=== PATIENT | male | born 1955 | race Caucasian/White ===

== ENCOUNTER 2018-07-26 10:23 | Inpatient (IN) ==
--- NOTE | 2018-07-26 10:43 | ED ---
HPI General Chief complaint: Chest Pain Stated complaint: Chest Pain/Arm Complaint Time Seen by Provider: 07/26/18 10:34 Source: patient Mode of arrival: ambulatory Limitations: no limitations History of Present Illness HPI narrative: 62-year-old male with no significant past medical history, not followed by a primary care physician, here by private vehicle for evaluation of chest pain. Over the last 2 weeks the patient has had intermittent episodes of chest pain. States the pain is substernal/epigastric, radiates to his bilateral shoulders, back, and left arm, is intermittent, described as pressure. Pain usually occurs with exertion, and the patient last experienced pain while walking into the emergency department. At time of my assessment he is not having active pain. He took 2 full aspirin this morning. He smokes about a pack and a half of cigarettes daily. He denies paresthesias or motor deficits. No dyspnea. No fevers, chills, cough, recent illness. Family history of cardiac disease in his father. Related Data Home Medications Medication Instructions Recorded Confirmed No Known Home Medications 07/26/18 07/26/18 Allergies Allergy/AdvReac Type Severity Reaction Status Date / Time No Known Allergies Allergy Verified 07/26/18 10:44 Review of Systems ROS: all other systems reviewed are negative PMFSH Social History Social History Substance History: Active Abuse Second Hand Smoke Exposure: No Smoking Status: Heavy tobacco smoker Tobacco Type: Cigarettes How Often Do You Have a Drink Containing Alcohol: Never Recent Travel in [facility] within the Last 8 Weeks: No Recent Out of Country Travel within the Last 8 Weeks: No Exam Narrative Exam Narrative: GENERAL: Well-developed, well-nourished, comfortable, no apparent distress. SKIN: Focused skin assessment warm/dry. HEAD: Atraumatic. Normocephalic. EYES: Pupils equal and round. No scleral icterus. No injection or drainage. ENT: No nasal bleeding or discharge. Mucous membranes pink and moist. NECK: Trachea midline. No JVD. CARDIOVASCULAR: Regular rate and rhythm. No murmur appreciated. Distal pulses brisk and equal bilaterally. RESPIRATORY: No accessory muscle use. Clear to auscultation. Breath sounds equal bilaterally. GASTROINTESTINAL: Abdomen soft, non-tender, nondistended. MUSCULOSKELETAL: No obvious deformities. No clubbing. No cyanosis. No edema. NEUROLOGICAL: Awake and alert. No obvious cranial nerve deficits. Motor grossly within normal limits. Normal speech. PSYCHIATRIC: Appropriate mood and affect; insight and judgment normal. Course Initial Documented Vital Signs Temperature 98.6 F 07/26/18 10:30 Pulse Rate 89 07/26/18 10:30 Respiratory Rate 20 07/26/18 10:30 Blood Pressure 240/106 H 07/26/18 10:30 Pulse Oximetry 97 07/26/18 10:30 Last Documented Vital Signs Temperature 98.6 F 07/26/18 10:30 Pulse Rate 90 07/26/18 10:42 Respiratory Rate 19 07/26/18 10:37 Blood Pressure 170/71 H 07/26/18 12:05 Pulse Oximetry 97 07/26/18 10:43 Critical Care Time Critical Care Time: Yes Total Critical Care Time: 35 Attestation: Aggregate critical care time was 35 minutes. Time to perform other separately billable procedures was not included in the critical care time. My time did not include minutes spent treating any other patients simultaneously or on activities that did not directly contribute to the patient's treatment. The services I provided to this patient were to treat and/or prevent clinically significant deterioration that could result in: , permanent disability, worsening clinical condition, cardiac arrest I provided critical care services requiring my management, as noted below: Chart data review, documentation time, medication orders and management, vital sign assessments/reviewing monitor data, ordering and reviewing lab tests, ordering and interpreting/reviewing x-rays and diagnostic studies, care of the patient and discussion of the patient with the admitting physicians. Medical Decision Making MDM Narrative Medical decision making narrative: Vital signs reviewed. Patient initially presented significantly hypertensive. He was given 10 mg of IV labetalol and 1 sublingual nitroglycerin with improvement in his blood pressure to 159/59. Labs reviewed. Cardiac enzymes are negative. Chest x-ray shows no acute cardia pulmonary disease. The patient's EKG shows extensive T wave inversions in all precordial leads and lateral limb leads. He smokes about 1.5 packs of cigarettes daily. Family history significant for cardiac disease in his father. He does not see a primary care physician and likely has other cardiac risk factors including hypertensive, presenting with a blood pressure of 240/140. Patient's pain appears to be exertional, however does occur while at rest at times. He likely has unstable angina versus stable angina. Because of this I contacted the on- call manager media Dr. Foster who recommends starting the patient on a heparin drip and admitting to the medical service. He will evaluate the patient for possible cath today. The patient was made aware of all findings and plan. Case discussed with hospitalist Dr. Regan Baez who will admit the patient to his service. Medical Screen Exam Complete: Yes Emergency Medical Condition: Yes Differential Diagnosis Differential Diagnosis: ACS, unstable angina, pneumothorax, pericarditis, PE, pneumonia, dissection, hypertensive crisis Lab Data Result diagrams: 07/26/18 10:52 07/26/18 10:52 Lab Results 07/26/18 07/26/18 07/26/18 Range/Units 10:52 10:52 10:52 WBC 6.8 (4.0-11.0) th/mm3 RBC 5.03 (4.50-5.90) mil/mm3 Hgb 14.1 (13.0-17.0) gm/dL Hct 41.4 (39.0-51.0) % MCV 82.3 (80.0-100.0) fL MCH 28.0 (27.0-34.0) pg MCHC 34.0 (32.0-36.0) % RDW 15.0 (11.6-17.2) % Plt Count 249 (150-450) th/mm3 MPV 8.0 (7.0-11.0) fL Neut % (Auto) 58.6 (16.0-70.0) % Lymph % (Auto) 26.8 (9.0-44.0) % [place] % (Auto) 9.9 H (0.0-8.0) % Eos % (Auto) 4.0 (0.0-4.0) % Baso % (Auto) 0.7 (0.0-2.0) % Neut # (Auto) 4.0 (1.8-7.7) th/mm3 Lymph # (Auto) 1.8 (1.0-4.8) th/mm3 [place] # (Auto) 0.7 (0.0-0.9) th/mm3 Eos # (Auto) 0.3 (0.0-0.4) th/mm3 Baso # (Auto) 0.1 (0.0-0.2) th/mm3 WBC Differential . Differential Comment Auto diff final PT 10.0 (9.8-11.6) sec INR 1.0 Ratio APTT 29.2 (23.4-31.7) sec Sodium 141 (136-145) meq/L Potassium 3.8 (3.5-5.1) meq/L Chloride 105 (98-107) meq/L Carbon Dioxide 29.6 (21.0-32.0) meq/L Anion Gap 6 (5-15) meq/L BUN 22 H (7-18) mg/dL Creatinine 1.36 H (0.60-1.30) mg/dL Estimated GFR 53 L (>89) mL/min Random Glucose 103 (74-106) mg/dL Calcium 9.0 (8.5-10.1) mg/dL Total Bilirubin 0.3 (0.2-1.0) mg/dL AST 13 L (15-37) U/L ALT 33 (12-78) U/L Alkaline Phosphatase 120 H (45-117) U/L Total Creatine Kinase 72 (39-308) U/L Troponin I Less than 0.02 L (0.02-0.05) ng/mL Total Protein 7.4 (6.4-8.2) g/dL Albumin 3.6 (3.4-5.0) g/dL Lipase 151 (73-393) U/L Imaging Data Radiologist's impression: Chest X-Ray 07/26/18 10:40 CONCLUSION: Negative for an acute process. ECG Data Attestation: I personally reviewed and interpreted this ECG as follows: (EKG: Sinus, rate 85, normal axis, incomplete RBBB, T wave inversions in septal, anterior and lateral leads, no ST elevations) Discharge Plan Discharge Disposition Patient Disposition: ED Admit(ED Internal Use Only) Discharge Condition Condition: Stable Discharge Details Diagnosis: Angina pectoris, unstable, Abnormal EKG Physicians Team ED Provider: Brayan Garzon Primary Care Provider: Primary Care Maryse,No Other Providers: Zuleyka Foster Rxs /Orders / Referrals /Forms Prescriptions: No Action No Known Home Medications RF: 0 Discharge Instructions Patient Printed Instructions: Chest Pain (ED) Status ED Status: With Doctor
[2018-07-26] MEDS ORDERED: Labetalol HCl Inj 100 MG/20 ML Vial IV.PUSH ONE (10:56)
--- NOTE | 2018-07-26 11:01 | XR ---
EXAM DATE: 07/26/2018 10:58 AM EST AGE/SEX: 62 years / Male INDICATIONS: Chest pain when arriving. CLINICAL DATA: This is the patient's initial encounter. Patient reports that signs and symptoms have been present for 1 day and indicates a pain score of 0/10. MEDICAL/SURGICAL HISTORY: . smoker None. COMPARISON: No prior exams available for comparison. FINDINGS: A single AP view of the chest demonstrates the lungs to be symmetrically aerated without evidence of mass, infiltrate or effusion. The cardiomediastinal contours are unremarkable. Osseous structures a re intact. CONCLUSION: Negative for an acute process. Electronically signed by: Lenny Quinones MD Board Certified Radiologist 07/26/2018 11:00 AM EST
[2018-07-26 11:06] LABS: Baso # (Auto) 0.1 th/mm3 (0.0-0.2); Baso % (Auto) 0.7 % (0.0-2.0); Eos # (Auto) 0.3 th/mm3 (0.0-0.4); Hematocrit 41.4 % (39.0-51.0); Hemoglobin 14.1 gm/dL (13.0-17.0); Lymph # (Auto) 1.8 th/mm3 (1.0-4.8); Lymph % (Auto) 26.8 % (9.0-44.0); Mean Corpuscular Volume 82.3 fL (80.0-100.0); Mono # (Auto) 0.7 th/mm3 (0.0-0.9); Mono % (Auto) 9.9 % (0.0-8.0); Neut % (Auto) 58.6 % (16.0-70.0); Platelet Count 249 th/mm3 (150-450); Red Blood Count 5.03 mil/mm3 (4.50-5.90); White Blood Count 6.8 th/mm3 (4.0-11.0)
[2018-07-26] MEDS ORDERED: Labetalol HCl Inj 100 MG/20 ML Vial ONE (11:06)
[2018-07-26 11:20] LABS: Albumin 3.6 g/dL (3.4-5.0); Anion Gap 6 meq/L (5-15); Aspartate Aminotransferase 13 U/L (15-37); Blood Urea Nitrogen 22 mg/dL (7-18); Carbon Dioxide 29.6 meq/L (21.0-32.0); Chloride 105 meq/L (98-107); Glomerular Filtration Rate 53 mL/min (>89); Glucose,Random 103 mg/dL (74-106); Lipase 151 U/L (73-393); Potassium 3.8 meq/L (3.5-5.1); Sodium 141 meq/L (136-145)
[2018-07-26 11:21] LABS: Alanine Aminotransferase 33 U/L (12-78)
[2018-07-26 11:23] LABS: Activated Partial Thrombo Time 29.2 sec (23.4-31.7)
[2018-07-26 11:25] LABS: Alkaline Phosphatase 120 U/L (45-117); Total Protein 7.4 g/dL (6.4-8.2)
[2018-07-26 11:27] LABS: Creatine Kinase 72 U/L (39-308)
[2018-07-26] MEDS ORDERED: Heparin 10,000 UNITS/10 ML Vial (for IV use) IV.PUSH STA (11:43)
[2018-07-26] MEDS ORDERED: Heparin Drip 25,000 UNIT/250 ML BAG IV.CONT PRN (11:43)
[2018-07-26] MEDS ORDERED: Morphine Inj 4 MG/ML Vial IV.PUSH PRN (13:02)
[2018-07-26] MEDS ORDERED: fentaNYL Citrate Inj 100 MCG/2 ML Ampul ONE (13:43)
[2018-07-26] MEDS ORDERED: Heparin/NS PF Inj 1,000 ML ONE (13:43)
[2018-07-26] MEDS ORDERED: Heparin 10,000 UNITS/10 ML Vial (for IV use) ONE (14:28)
[2018-07-26] MEDS ORDERED: Cangrelor Inj 50,000 MCG Vial ONE (14:36)
--- NOTE | 2018-07-26 15:13 | CATHPROC ---
[facility] HIS Report Study Information Study Number Admission Scheduled Start Study Start [id number] Jul 26 2018 12:49PM 07/26/2018 Jul 26 2018 1:16PM [facility] Cardiac Catheterization Admit Source Facility Department Emergency department [facility] Ceramic Chemist Physician and Clinical Staff Initial Zuleyka Lutz Fur Mixer Mitchell Mejía,RUSH Recorder Alli Cohen,RT(R) Recorder Tiffanie Maldonado,RT(R) Gwyn Beth,RT(R) Procedures Performed Procedure Location (Site) Vessel Name Angiogram LV LV Ventricle Coronary Angiograms LCA Left Coronary Coronary Angiograms RCA Right Coronary L Heart Cath PTCA CIRC Dist CIRC Stent CIRC Dist CIRC Wire insertion Fem Art (right) Femoral Art Equipment Time Manager Special Events Description Size Mfg Part Number Used/Scraped WIRE, BALANCE MIDDLEWEIGHT [id number] 14:27 [employer] 190CM Used 190CM *[id number] TRANSDUCER, TRClarion Research GroupAVE [id number] 14:00 ETIENNE LINO * Used W/STOCKCOCK *[id number] [id number] *[id number] 534-520T *[id number] [id number] *[id number] [id number] *[id number] *[id number] 14:56 DAIG/[employer]. [employer] ANGIOSEAL, FR6 VIP FR 6 Used *[id number] 14:00 [employer] BLANKET,WARM AIR CCL * Used *[id number] 14:00 [employer] PACK, CCL CUSTOM * Used *[id number] 14:00 [employer] PACER PEN, SKIN DUAL W/ RULER * Used *[id number] 14:50 [employer] STENT, 2.5 22 INTEGRITY 2.5 22 Used *[id number] 14:48 [employer] MEDICAL 30 YELENA INDEFLATOR Used *[id number] 14:34 [employer] MEDICAL SHEATH, FR6.5 PRELUDE 11CM FR 6.5 038ACT Used *[id number] 14:00 EVRST WIRE, 3MMJ .035 180CM 180CM Used *[id number] PROBE COVER, STERILE [id number] 14:00 [employer] MEDICAL * Used ULTRASOUND W/ GEL *[id number] 14:00 [facility] MANIFOLD, 4 PORT * Used *[id number] TUBING, 72" PRESSURE [id number] 14:08 NAMIC Used INJECTION (APPLIANCE TESTER) 0476 [id number] 14:00 NAMIC TUBING, HIGH PRESSURE 48" 48" Used *[id number] 14:00 [employer] OMNIPAQUE, 350 MG, 150ML 150ML [id number] Used 14:45 [employer] OMNIPAQUE, 350 MG, 150ML 150ML [id number] Used 14:17 [employer]COMED OMNIPAQUE, 350 MG, 50ML 50ML [id number] Used [id number] 14:00 TERUMO MEDICAL SHEATH, FR5 TERUMO (10CM) FR 5 Used *[id number] Equipment Model, Serial, Lot Number and Expiration Data Description Model Number Serial Number Lot Number Expiration Date ANGIOSEAL, FR6 VIP [id number] 01-10-2019 STENT, 2.5 22 INTEGRITY [id number] 12-07-2018 History: Allergies Allergy Reaction No Known Allergies History: Risk Factors Family History of Hypertension Dyslipidemia Previous CO Previous Heart Failure Premature CAD No No Yes No No Prior Valve Prior PCI Prior CABG Surgery No No No Cerebrovascular Peripheral Artery Chronic Lung On Dialysis Diabetes Disease Disease Disease No No No No No History: Other Current Smoker Method Packs a Day Years Used Pack Years Yes Cigarettes 2 40 80 Labs Hgb (g/dl) Hct (%) WBC (l/cumm) Platelets (thousands) 11.60-17.00 35.00-51.00 4.00-11.00 150.00-450.00 14.1 41.4 6.8 249 Glucose (mg/dl) BUN (mg/dl) Creatinine (mg/dl) BUN:Creatinine (1:x) 74.00-106.00 7.00-18.00 0.50-1.30 10.00-20.00 103 22 1.3 16.9 Na (meq/l) K (meq/l) 136.00-145.00 3.50-5.10 141 3.8 INR (PTT:PT) 0.90-1.10 1 Troponin I (ng/ml) CPK (u/l) CPK-MB (ng/ML) 0.02-0.05 26.00-308.00 0.50-3.60 0.02 72 Not Drawn Medication Medication Total Dose (Bolus/Oral) Medication Total Dosage/Unit 1% XYLOCAINE 20 mL FENTANYL 100 mcg HEPARIN 6000 units NTG (IC) 900 mcg VERSED 5 mg Medications (Bolus/Oral) Medication Time Given Dosage/Unit Administered By Reason VERSED 07/26/2018 2:10:26 PM 2 mg Kym, Mitchell 2 mg VERSED given in lab by Mitchell Mejía RN in Left Antecubital via Peripheral IV. Ordered by Zuleyka Martinez. FENTANYL 07/26/2018 2:11:05 PM 50 mcg Kym, Mitchell 50 mcg FENTANYL given in lab by Mitchell Mejía RN in Left Antecubital via Peripheral IV. Ordered by Zuleyka Bates. VERSED 07/26/2018 2:12:50 PM 1 mg Kym, Mitchell 1 mg VERSED given in lab by Mitchell Mejía RN in Left Antecubital via Peripheral IV. Ordered by Zuleyka Martinez. 1% XYLOCAINE 07/26/2018 2:14:53 PM 20 mL Zuleyka Foster 20 mL 1% XYLOCAINE given in lab by Zuleyka Foster in Right Groin via Subcutaneous. VERSED 07/26/2018 2:20:21 PM 1 mg Kym, Mitchell 1 mg VERSED given in lab by Mitchell Mejía RN in Left Antecubital via Peripheral IV. Ordered by Zuleyka Martinez. HEPARIN 07/26/2018 2:34:36 PM 6000 units Kym, Mitchell 6000 units HEPARIN given in lab by Mitchell Mejía RN in Left Antecubital via Peripheral IV. Ordered by Zuleyka Foster. NTG (IC) 07/26/2018 2:44:30 PM 200 mcg Zuleyka Foster 200 mcg NTG (IC) given in lab by Zuleyka Foster in Right Groin via Intra-coronary. Ordered by Zuleyka Martinez. VERSED 07/26/2018 2:44:47 PM 1 mg Kym, Mitchell 1 mg VERSED given in lab by Mitchell Mejía RN in Left Antecubital via Peripheral IV. Ordered by Zuleyka Martinez. FENTANYL 07/26/2018 2:45:05 PM 50 mcg Kym, Mitchell 50 mcg FENTANYL given in lab by Mitchell Mejía RN in Left Antecubital via Peripheral IV. Ordered by Zuleyka Bates. NTG (IC) 07/26/2018 2:45:49 PM 200 mcg Zuleyka Foster 200 mcg NTG (IC) given in lab by Zuleyka Foster in Right Groin via Intra-coronary. Ordered by Zuleyka Martinez. NTG (IC) 07/26/2018 2:49:59 PM 100 mcg Zuleyka Foster 100 mcg NTG (IC) given in lab by Zuleyka Foster in Right Groin via Intra-coronary. Ordered by Zuleyka Martinez. NTG (IC) 07/26/2018 2:53:50 PM 400 mcg Zuleyka Foster 400 mcg NTG (IC) given in lab by Zuleyka Foster in Right Groin via Intra-coronary. Ordered by Zuleyka Martinez. Medication (Drip) Medication Time Given Dosage/Unit Concentration/Unit Diluent (ml) Solution IV Solutions 07/26/2018 1:37:00 PM 0 mL (IV) 500 NaCl .9 Patient arrived on IV Solutions in Left Antecubital via Peripheral IV. Pump/Drip Flow = 20 ml/hr usin g NaCl .9. KENGREAL BOLUS 07/26/2018 2:39:08 PM 16 mL 16 mL KENGREAL BOLUS given in lab by Mitchell Mejía RN in Left Antecubital via Peripheral IV. Ordered by Zuleyka Foster. KENGREAL DRIP 07/26/2018 2:43:44 PM 4 mcg/kg/min 50 mg 250 NaCl .9 4 mcg/kg/min KENGREAL DRIP given in lab by Mitchell Mejía RN in Left Antecubital via Peripheral IV. Pu mp/Drip Flow = 125.16 ml/hr using NaCl .9 with a concentration of 50 mg in 250 ml. Ordered by Zuleyka Foster. Initial Case Assessment Cardiovascular Edema Present Skin color Skin None Normal Warm Dry Circulatory - Right Pulses Dorsalis Pedis Femoral 2 2 Scale (0,1,2,3,4,d) Circulatory - Left Pulses Dorsalis Pedis Femoral 2 2 Scale (0,1,2,3,4,d) Neurological State Oriented to time-place- Alert Moves all extremities person Chronological Log Time Study Chronological Log 13:33:55 Patient arrived via Bed. 13:33:56 Patient Name, D.O.B, / Armband Verified By R.N. 13:33:57 Consent signed by the physician and the patient and verified by the Ceramic Chemist staff. 13:33:58 Pre-op and post- op instructions given; patient acknowledges understanding of instructions. 13:34:00 Presedation assessment performed by Ceramic Chemist RN. 13:34:07 Patient has been NPO for Less than 6Hrs. 13:34:08 Skin Breakdown-none per pt 13:34:10 Patient Warmer Placed on the Table. 13:34:12 Timi Prominences Protected 13:34:13 A # 20 IV was noted in the Antecubital (left). Grade = 0 13:34:16 History and physical on the chart or being dictated. 13:36:20 A # 20 IV was noted in the Hand (left). Grade = 0 13:37:00 Patient arrived on IV Solutions in Left Antecubital via Peripheral IV. Pump/Drip Flow = 20 ml/hr using NaCl .9. 13:37:18 History and physical on the chart or being dictated. 13:38:58 Reference ECG taken Vitals capture started with the following parameters, Patient=Adult, Interval=5 min, Initial Pr ypwhon=248 mmHg, 13:39:51 Deflation Rate=5 mmHg, Cuff placed on Right Arm 13:41:32 HR=87 bpm, GKDZ=245/116 mmhg, SpO2=97 %, Resp=17 B/min 13:45:48 HR=82 bpm, JGKN=105/120 mmhg, SpO2=97.0 %, Resp=18 B/min Assessment: Initial Case, Edema=None, Color=Normal, Skin = Warm, Dry Right Pulses: Aden Ped=2, Femoral=2 13:45:49 Left Pulses: Aden Ped=2, Femoral=2 Neurological: State=Alert, Ox3, ROY 13:46:21 Bilateral groins prepped with 2% chlorhexidine, and draped after a 3 minute waiting time. 13:51:00 MD paged 13:51:40 HR=79 bpm, BGTM=001/114 mmhg, SpO2=97.0 %, Resp=13 B/min 13:55:46 HR=81 bpm, SDKJ=159/92 mmhg, SpO2=99.0 %, Resp=19 B/min 13:56:20 MD responded 13:57:28 Pressure channel 2 zeroed. 14:00:47 HR=79 bpm, WQFZ=019/105 mmhg, SpO2=99.0 %, Resp=16 B/min 14:05:48 HR=77 bpm, MKZJ=854/98 mmhg, SpO2=97.0 %, Resp=17 B/min 14:08:57 MD arrived. 14:10:26 2 mg VERSED given in lab by Mitchell Mejía RN in Left Antecubital via Peripheral IV. Ordered by Zuleyka Foster. 14:10:47 HR=80 bpm, WYHY=475/102 mmhg, SpO2=99.0 %, Resp=13 B/min 14:11:05 50 mcg FENTANYL given in lab by Mitchell Mejía RN in Left Antecubital via Peripheral IV. Ord ered by Zuleyka Foster. 14:12:50 1 mg VERSED given in lab by Mitchell Mejía RN in Left Antecubital via Peripheral IV. Ordered by Zuleyka Foster. Time Out. Correct patient, correct procedure, correct physician, labs, allergies, and equipment verified with laboratory chemical assistant 14:13:28 team present. Fire risk assesment completed (see hard stop sheet for coding). Time Out Conc urred by MD and individual staff in procedure. 14:13:40 Case Start 14:14:53 20 mL 1% XYLOCAINE given in lab by Zuleyka Foster in Right Groin via Subcutaneous. 14:15:11 Access site was Right Femoral Artery. 14:15:16 A SHEATH, FR5 TERUMO (10CM) FR 5 was advanced into the Fem Art (right) using the Percutaneo us technique. A PIGTAIL ANG. INFINITI CATHETER FR 5 was advanced over a wire. OMNIPAQUE, 350 MG, 150ML 150ML was used 14:15:28 for injections. 14:16:31 HR=77 bpm, IMYA=565/94 mmhg, SpO2=96.0 %, Resp=19 B/min Recorded Pressure: LV, HR=76, Condition=Condition 1 14:16:44 (Left Ventricle) LV 188/-11/16 14:17:22 The LV was injected at 10 cc/sec for a total of 30. OMNIPAQUE, 350 MG, 50ML 50ML used. Recorded Pressure: LV, Ao, HR=85, Condition=Condition 1 14:19:06 (Left Ventricle) LV 228/-5/29, (Aorta) Ao 204/88/136 14:19:19 Catheter was removed A AR MOD INFINITI CATHETER FR 5 was advanced over a wire. OMNIPAQUE, 350 MG, 150ML 150ML was us ed for 14:19:57 injections. 14:20:21 1 mg VERSED given in lab by Mitchell Mejía RN in Left Antecubital via Peripheral IV. Ordered by Zuleyka Foster. Recorded Pressure: Ao, HR=85, Condition=Condition 1 14:21:27 (Aorta) Ao 183/98/135 14:21:30 HR=80 bpm, HPQH=580/88 mmhg, SpO2=94.0 %, Resp=24 B/min 14:22:05 The RCA was injected and visualized at various angles. OMNIPAQUE, 350 MG, 150ML 150ML used . 14:23:02 Catheter was removed A JL 4.0 INFINITI CATHETER FR 5 was advanced over a wire. OMNIPAQUE, 350 MG, 150ML 150ML was us ed for 14:23:20 injections. 14:25:13 The LCA was injected and visualized at various angles. OMNIPAQUE, 350 MG, 150ML 150ML used . 14:26:26 Catheter was removed 14:26:31 HR=91 bpm, DVKF=266/104 mmhg, SpO2=93 %, Resp=16 B/min 14:30:13 Activated Clotting Time Drawn 14:30:49 HR=83 bpm, SKIC=438/114 mmhg, SpO2=93 %, Resp=16 B/min 14:34:17 ACT (Normal Range 90-180) = 135 14:34:36 6000 units HEPARIN given in lab by Mitchell Mejía RN in Left Antecubital via Peripheral IV. Ordered by Zuleyka Foster. 14:35:56 HR=87 bpm, VEQC=806/112 mmhg, SpO2=95 %, Resp=10 B/min A SHEATH, FR6.5 PRELUDE 11CM FR 6.5 was exchanged in the Fem Art (right). This was necessary in order to 14:36:42 accomodate a larger catheter. A XBC 3.5 GUIDE CATHETER FR 6 was advanced over a wire. OMNIPAQUE, 350 MG, 150ML 150ML was used for 14:37:17 injections. 14:38:49 A WIRE, 3MMJ .035 180CM 180CM was inserted via Fem Art (right). 16 mL KENGREAL BOLUS given in lab by Mitchell Mejía RN in Left Antecubital via Peripheral IV. Or dered by Kristin 14:39:08 Zuleyka. 14:40:55 Catheter was removed A XBC 3.0 GUIDE CATHETER FR 6 was advanced over a wire. OMNIPAQUE, 350 MG, 150ML 150ML was used for 14:41:04 injections. 14:41:53 HR=87 bpm, LUXN=647/118 mmhg, Resp=19 B/min 14:42:30 Activated Clotting Time Drawn 14:43:00 A WIRE, BALANCE MIDDLEWEIGHT 190CM 190CM was inserted via Fem Art (right). 4 mcg/kg/min KENGREAL DRIP given in lab by Mitchell Mejía RN in Left Antecubital via Peripheral IV. Pump/Drip Flow = 14:43:44 125.16 ml/hr using NaCl .9 with a concentration of 50 mg in 250 ml. Ordered by Zuleyka Foster. 14:44:30 200 mcg NTG (IC) given in lab by Zuleyka Foster in Right Groin via Intra-coronary. Ordered by Zuleyka Foster. 14:44:47 1 mg VERSED given in lab by Mitchell Mejía RN in Left Antecubital via Peripheral IV. Ordered by Zuleyka Foster. 14:45:05 50 mcg FENTANYL given in lab by Mitchell Mejía RN in Left Antecubital via Peripheral IV. Ord ered by Zuleyka Foster. 14:45:49 200 mcg NTG (IC) given in lab by Zuleyka Foster in Right Groin via Intra-coronary. Ordered by Zuleyka Foster. 14:46:00 HR=97 bpm, IEDL=882/130 mmhg, Resp=26 B/min A balloon, sapphire II pro 2.0x10 was inserted over WIRE, BALANCE MIDDLEWEIGHT 190CM 190CM via the Fem Art (right). 14:46:36 ref [id number] lot [id number] 2020-02-01 14:46:52 ACT (Normal Range 90-180) = 312 A balloons over a WIRE, BALANCE MIDDLEWEIGHT 190CM 190CM in the CIRC Dist was inflated using a 30 YELENA 14:48:12 INDEFLATOR at 14 yelena for 30 sec. 14:49:41 Balloon Removed. 14:49:59 100 mcg NTG (IC) given in lab by Zuleyka Foster in Right Groin via Intra-coronary. Ordered by Zuleyka Fotser. 14:50:59 HR=98 bpm, KWLB=309/118 mmhg, SpO2=97.0 %, Resp=15 B/min An STENT, 2.5 22 INTEGRITY 2.5 22 Bare Metal Stent was inserted through a XBC 3.0 GUIDE CATHETE R FR 6 over a 14:51:10 WIRE, BALANCE MIDDLEWEIGHT 190CM 190CM. A STENT, 2.5 22 INTEGRITY 2.5 22 was deployed using a 30 YELENA INDEFLATOR at 9 atmospheres for 45 seconds in the 14:52:03 CIRC Dist. 14:53:28 Delivery device removed 14:53:50 400 mcg NTG (IC) given in lab by Zuleyka Foster in Right Groin via Intra-coronary. Ordered by Zuleyka Foster. 14:54:11 Catheter was removed 14:54:16 Wire removed 14:55:29 An injection in the Fem Art (right) was made through the SHEATH, FR6.5 PRELUDE 11CM FR 6.5. 14:55:48 HR=90 bpm, QIJJ=424/97 mmhg, SpO2=96.0 %, Resp=15 B/min 14:55:58 Case End (Physician broke scrub) 14:59:07 ANGIOSEAL, FR6 VIP FR 6 placement in the Fem Art (right) 15:00:49 HR=91 bpm, CNHI=307/105 mmhg, SpO2=99.0 %, Resp=16 B/min 15:01:18 Sterile dressing applied to site 15:01:19 No case complications noted. 15:01:20 Cine recording checked. 15:01:23 Holding Area notified of successful intervention. 15:01:37 Bedside Report will be given. 15:01:38 Implantable Device card placed in patient's chart. 15:01:47 A Left Heart Cath was performed. 15:05:54 HR=80 bpm, XHDU=769/104 mmhg, Resp=16 B/min 15:10:25 Vitals capture stopped. 15:10:48 Patient moved to stretcher End Study - Contrast Media Used In Study Contrast Total Opened (mL) Total Used (mL) Total Wasted (mL) Omnipaque 350 350 205 145 End Study - Maximum Contrast Load Max Contrast Load (mL) 401.2 End Study - Radiation Exposure Fluoro Time Fluoro Dose (mGy) Cine Dose (uGym2) (minutes) 7.5 [id number] [id number] End Study - Patient Disposition Complications Transferred To Interventional Outcome No Telemetry Bed successful
[2018-07-26] MEDS ORDERED: Misc Info for Pharmacy OTHER STA (15:15)
[2018-07-26] MEDS ORDERED: Iohexol 350 MG/ML 100 ML Vial (for Cath Lab) IVCONTRAST ONE (15:42)
[2018-07-26] MEDS ORDERED: Iohexol 350 MG/ML 50 ML Vial (for Cath Lab) IVCONTRAST ONE (15:42)
--- NOTE | 2018-07-26 16:12 | ECG ---
Date Performed: 07/26/2018 Time Performed: 10:41:47 PTAGE: 62 years EKG: Sinus rhythm POSSIBLE LEFT ATRIAL ENLARGEMENT INCOMPLETE RIGHT BUNDLE BRANCH BLOCK POSSIBLE SEPTAL MYOCARDIAL INF ARCTION MODERATE T-WAVE ABNORMALITY, CONSIDER ANTEROLATERAL ISCHEMIA ABNORMAL ECG NO PREVIOUS TRACING DOCTOR: Rickey Stockton Interpretating Date/Time 07/26/2018 16:10:56
--- NOTE | 2018-07-26 16:19 | P.HPIM ---
History of Present Illness Primary Care Physician: No Primary Care Physician Patient is a pleasant 62-year-old male with no known past medical history presents to emergency department for complaints of epigastric and chest pain. Patient reports that symptoms started about 2 weeks prior to presentation when he first developed abdominal pain which he thought was reflux in nature. Patient reports he did not present to emergency department because he had other things that he also need to take care of. Patient reports that over the last 2 weeks symptoms have progressed prompting him to come to the hospital. Pain is not described as a chest pain located both on the left, right, and substernal chest wall with occasional radiation up to the arm stopping at the elbow. Patient reports that symptoms are aggravated by exertion and relieved with rest. Patient denied loss of consciousness, dizziness, Diaphoresis,wheezing, nausea, vomiting. Patient reports noticing occasional palpitations. Patient has never had these symptoms before and when he presented to emergency department was found to have EKG showing diffuse T wave inversions concerning for ischemia for which she was started promptly on a heparin drip with plan to catheterization. Patient denies drug use. Patient denied trauma. Patient denied recent illness. Patient denied noticing rash over chest wall. Patient reports that he smokes approximately 1.5-2 packs of cigarettes per day for the last 40+ years. Family history significant for father who had 3 vessel CABG and diabetes. Patient's father but unclear circumstances. Patient' s mother from cancer. Inpatient Certification Inpatient Certification: I certify that the inpatient services were ordered in accordance with Medicare regulations governing the order. This includes certification that hospital inpatient services are reasonable and necessary and in the case of services not specified as inpatient-only under 42 CFR 419.22(n), that they are appropriately provided as inpatient services in accordance to with the 2-midnight benchmark under 43 CFR 412.3(e) Review of Systems Review of Systems: all other systems reviewed are negative [facility] Medical History Medical History Patient denies medical problems (Acute) Surgical History Surgical History Hx of tonsillectomy (Acute) Social History Social History Substance History: Active Abuse Second Hand Smoke Exposure: No Smoking Status: Heavy tobacco smoker Tobacco Type: Cigarettes How Often Do You Have a Drink Containing Alcohol: Never Recent Travel in 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 Immunization History Tetanus Immunization: <5 Years Medications and Allergies Allergies Allergy/AdvReac Type Severity Reaction Status Date / Time No Known Allergies Allergy Verified 07/26/18 10:44 Home Medications Medication Instructions Recorded Confirmed Type No Known Home Medications 07/26/18 07/26/18 History Active Medications: Active Medications Aspirin (Aspirin Chew) 81 mg PO DAILY PAMELA Clopidogrel Bisulfate (Plavix) 75 mg PO DAILY PAMELA Lisinopril (Prinivil) 10 mg PO DAILY PAMELA Metoprolol Tartrate (Lopressor) 50 mg PO BID PAMELA Morphine Sulfate (Morphine Inj) 2 mg IV.PUSH Q4H PRN PRN Reason: PAIN SCALE 8 TO 10 Pravastatin Sodium (Pravachol) 40 mg PO HS PAMELA Sodium Chloride (Ns Flush) 2 ml IV.FLUSH BID PAMELA Sodium Chloride (Ns Flush) 2 ml IV.FLUSH PRN PRN PRN Reason: FLUSH AFTER USING IV ACCESS Physical Exam Vital signs: Last Vital Signs Temp 98.6 F 07/26/18 10:30 Pulse 90 07/26/18 10:42 Resp 19 07/26/18 10:37 BP 170/71 H 07/26/18 12:05 Pulse Ox 97 07/26/18 15:24 Intake & Output 07/24/18 07/25/18 07/26/18 07/27/18 06:59 06:59 06:59 06:59 Intake Total Balance Weight 104.326 kg General: No acute distress, conversational HEENT: EOMI, PERRLA Cardio vascular: S1/S2. No murmurs rubs or gallops appreciated. Respiratory: Clear to auscultation anteriorly posteriorly. No intercostal muscle use. Gastrointestinal: Soft, nontender, nondistended, no guarding or rebound appreciated. Positive bowel sounds Extremity: No lower extremity edema Muscular skeletal: No evidence of costochondritis Skin: No rash over anterior chest wall Results Labs CBC & Chem 7: 07/26/18 10:52 07/26/18 10:52 Imaging Impressions Chest X-Ray 07/26/18 10:40 CONCLUSION: Negative for an acute process. Caprini VTE Risk Assessment Caprini VTE Risk Assessment: No/Low Risk (score <= 1) Caprini Risk Assessment Model: Point Value = 1 Point Value = 2 Point Value = 3 Point Value = 5 Age 41-60 Minor surgery BMI > 25 kg/m2 Swollen legs Varicose veins or History of unexplained or recurrent spontaneous Oral contraceptives or hormone replacement Sepsis (< 1 month) Serious lung disease, including pneumonia (< 1 month) Abnormal pulmonary function Acute myocardial infarction Congestive heart failure (< 1 month) History of inflammatory bowel disease Medical patient at bed rest Age 61-74 Arthroscopic surgery Major open surgery (> 45 min) Laparoscopic surgery (> 45 min) Malignancy Confined to bed (> 72 hours) Immobilizing plaster cast Central venous access Age >= 75 History of VTE Family history of VTE Factor V Leiden Prothrombin [id number] Lupus anticoagulant Anticardiolipin antibodies Elevated serum homocysteine Heparin-induced thrombocytopenia Other congenital or acquired thrombophilia Stroke (< 1 month) Elective arthroplasty Hip, pelvis, or leg fracture Acute spinal cord injury (< 1 month) Prophylaxis Regimen: Total Risk Factor Score Risk Level Prophylaxis Regimen 0-1 Low Early ambulation 2 Moderate Order ONE of the following: *Sequential Compression Device (SCD) *Heparin 5000 units SQ BID 3-4 Higher Order ONE of the following medications: *Heparin 5000 units SQ TID *Enoxaparin/Lovenox 40 mg SQ daily (WT < 150 kg, CrCl > 30 mL/min) *Enoxaparin/Lovenox 30 mg SQ daily (WT < 150 kg, CrCl > 10-29 mL/min) *Enoxaparin/Lovenox 30 mg SQ BID (WT < 150 kg, CrCl > 30 mL/min) AND/OR *Sequential Compression Device (SCD) 5 or more Highest Order ONE of the following medications: *Heparin 5000 units SQ TID (Preferred with Epidurals) *Enoxaparin/Lovenox 40 mg SQ daily (WT < 150 kg, CrCl > 30 mL/min) *Enoxaparin/Lovenox 30 mg SQ daily (WT < 150 kg, CrCl > 10-29 mL/min) *Enoxaparin/Lovenox 30 mg SQ BID (WT < 150 kg, CrCl > 30 mL/min) AND *Sequential Compression Device (SCD) Assessment and Plan Plan Patient is a 62-year-old male with no sniffing past medical history presenting with acute onset chest pain found on EKG to have diffuse anterior lateral T wave inversions concerning for acute coronary syndrome specifically U/A Cardiology: Acute coronary syndrome/unstable angina Cardiology consulted and recommendations appreciated via EMR Telemetry monitoring - CXR reviewed. No consolidation EKG as needed chest pain 2D echocardiogram ordered for 07/27 Carvedilol 3.25 mg ordered / Hemoglobin A1c, lipid panel - Morphine 2mg q3 Counseled patient on importance of smoking cessation as well as heart healthy diet and exercise post hospitalization. Patient verbalized understanding Groin check overnight for evidence of hematoma We will follow-up on cardiac catheterization official recommendations and report. Cardiology closely following CODE STATUS: Full code DVT prophylaxis currently on heparin drip Disposition:'s [facility]IC Diet: Cardiac
[2018-07-26] MEDS: Metoprolol Tartrate 50 MG Tablet PO SCH (16:23)
[2018-07-26] MEDS: Lisinopril 5 MG Tablet PO SCH (16:23)
[2018-07-26] MEDS ORDERED: amLODIPine 10 MG Tablet PO ONE (17:00)
--- NOTE | 2018-07-26 18:10 | MB ---
cc: Zuelyka Foster MD DATE: 07/26/2018 HISTORY OF PRESENT ILLNESS: A 62-year-old white male with no previous cardiac history. He has had a 2-week history of substernal chest discomfort radiating to his both shoulders, back and left arm. The pain appears with exertion and improves with rest. It has been more severe and more frequent. The patient has family history of heart disease and continues to smoke. He has no shortness of breath, PND, orthopnea, peripheral edema, dizziness, lightheadedness or palpitations. PAST MEDICAL HISTORY: Negative for hypertension, dyslipidemia, diabetes mellitus, coronary artery disease, or CVA. MEDICATIONS: None. ALLERGIES: NONE. SOCIAL HISTORY: The patient is a heavy smoker. He does not drink alcohol. FAMILY HISTORY: Positive for heart disease in his father. REVIEW OF SYSTEMS: Otherwise negative. PHYSICAL EXAMINATION: VITAL SIGNS: Blood pressure 192/77, pulse 75 and regular. HEENT: Negative, 2+ carotid upstrokes, no bruits. LUNGS: Clear. HEART: Regular with no murmur, gallop or rub. ABDOMEN: Soft. No bruits. EXTREMITIES: Without edema. 2+ pulses. NEUROLOGIC: Grossly nonfocal. LABORATORY DATA: EKG was reviewed and showed normal sinus rhythm, incomplete right bundle branch block, small anteroseptal Q-waves and diffuse ST-T changes. LABORATORY DATA: Hemoglobin 14.1. Potassium 3.8, creatinine 1.36, AST 13, ALT 33. Troponin less than 0.02. DIAGNOSES: 1. Acute coronary syndrome/unstable angina. 2. Smoking. 3. Family history of coronary artery disease. DISPOSITION: The patient will be scheduled for urgent cardiac catheterization and coronary intervention, if necessary, today. He understands the risks and benefits and wishes to proceed. He was strongly encouraged to quit smoking. We will initiate aggressive modifications of his cardiac risk factors. Zuleyka Foster MD OQ/ll , 04:18 PM , 04:26 PM MTDKat
--- NOTE | 2018-07-26 18:16 | MR ---
cc: Zuleyka Foster MD DATE: 07/26/2018 PREOPERATIVE DIAGNOSES: Unstable angina, acute coronary syndrome, class IV angina. PROCEDURE PERFORMED: 1. Retrograde left heart catheterization with left ventriculography and selective coronary angiography. 2. Angioplasty and stenting of the distal left circumflex artery. 3. Moderate sedation. ACCESS SITE: Right femoral artery. EQUIPMENT USED: 1. A 5-Amharic pigtail catheter, 5-Amharic JL4 and AR modified coronary catheters. 2. XB circumflex 3.5 guide, BMW wire, Saphire 2.0 x 10 mm balloon for predilatation, 2.5 x 22 mm Integrity bare-metal stent at 9 atmospheres. MEDICATIONS: Versed IV, fentanyl IV, heparin IV, nitroglycerin IC, Kengreal IV. CONTRAST: Omnipaque 205 mL. COMPLICATIONS: None. ESTIMATED BLOOD LOSS: Less than 10 mL. HEMOSTASIS: Angio-Seal closure. RESULTS: A. HEMODYNAMICS: Heart rate 70 beats per minute. Left ventricular end-diastolic pressure 5 mmHg. Left ventricle 210/5. Aorta 190/98/135. B. Left ventricular ejection fraction 60%, wall motion: small area of mild mid inferior hypokinesis, no mitral regurgitation. C. CORONARY ANGIOGRAPHY: Left main coronary artery patent. Left anterior descending artery patent. First diagonal artery is a large vessel which is patent. Ramus intermedius has mild 20% stenosis in the proximal portion. Left circumflex artery is a nondominant vessel with 20% stenosis in the proximal portion and a severe 90% stenosis in the distal portion. OM1 is patent. Right coronary artery is a dominant vessel which is patent. PDA patent, PLV patent. Stenosis in the circumflex artery was 17 mm long, pre-MAXIMILIANO flow 3, post-MAXIMILIANO flow 3, post-stenosis 0. The patient had his typical angina during balloon inflations. Post-intervention angiography revealed excellent patency of the stented segment and no evidence of dissection, thrombosis, or distal embolization. DIAGNOSES: 1. Unstable angina/acute coronary syndrome. 2. Coronary artery disease with severe stenosis of the distal left circumflex artery. 3. Overall preserved left ventricular systolic function. 4. Successful angioplasty and stenting of the distal left circumflex artery. DISPOSITION: Mr. Levi will be monitored on telemetry after his procedure. He will continue Plavix for at least 3 months and baby aspirin indefinitely. We also initiate therapy with beta karen and statin. We will also titrate antihypertensive therapy. He was strongly encouraged to quit smoking. He will follow up with his primary physician after discharge. MD KAITLIN Taylor/bud , 03:13 PM , 03:24 PM ROSALBA
[2018-07-26] MEDS ORDERED: Heparin - SQ 10,000 UNITS/ML Vial SQ SCH (21:00)
[2018-07-27] MEDS: Metoprolol Tartrate 50 MG Tablet PO SCH ×2 (03:57→15:11)
[2018-07-27 08:16] LABS: Hematocrit 40.5 % (39.0-51.0); Hemoglobin 13.5 gm/dL (13.0-17.0); Mean Corpuscular HGB Conc 33.3 % (32.0-36.0); Mean Corpuscular Hemoglobin 27.7 pg (27.0-34.0); Mean Corpuscular Volume 83.1 fL (80.0-100.0); Mean Platelet Volume 8.4 fL (7.0-11.0); Platelet Count 279 th/mm3 (150-450); Red Blood Count 4.87 mil/mm3 (4.50-5.90); Red Cell Distribution Width 15.2 % (11.6-17.2); White Blood Count 9.6 th/mm3 (4.0-11.0)
[2018-07-27] MEDS: Lisinopril 5 MG Tablet PO SCH (08:22)
[2018-07-27 08:24] LABS: Prothrombin Time 10.4 sec (9.8-11.6)
[2018-07-27 08:39] LABS: Calcium 8.1 mg/dL (8.5-10.1); Chol/HDL Ratio 6.34 Ratio; HDL Cholesterol 32.6 mg/dL (40.0-60.0); Magnesium 2.2 mg/dL (1.5-2.5); Potassium 3.5 meq/L (3.5-5.1)
--- NOTE | 2018-07-27 11:12 | P.PNIM ---
Subjective Interval history: Follow-up for chest pain and hypertension Denies any chest pain, status post cardiac catheterization yesterday. Denies any headache, nausea or vomiting. Blood pressure in the 180s, patient wants to go home. No nausea or vomiting. No focal deficits. Physical Exam Vital signs: Last Vital Signs Temp 98.6 F 07/27/18 07:22 Pulse 64 07/27/18 10:00 Resp 16 07/27/18 07:22 BP 163/78 H 07/27/18 07:22 Pulse Ox 93 L 07/27/18 08:00 Intake & Output 07/25/18 07/26/18 07/27/18 07/28/18 06:59 06:59 06:59 06:59 Intake Total 725 / 725 Output Total 1850 / 1850 Balance -1125 / -1125 Weight 104.4 kg Results Labs CBC & Chem 7: 07/27/18 06:54 07/27/18 06:54 Assessment and Plan Plan Patient is a pleasant 62-year-old male with no known past medical history presents to emergency department for complaints of epigastric and chest pain. EKG showing incomplete right bundle branch block, small anteroseptal Q waves and diffuse ST-T wave changes concerning for ischemia for which she was started promptly on a heparin drip with plan for catheterization. Chest x-ray unremarkable, Troponin 0 0.02. patient has been smoking for the last 40 years and has a family history significant for coronary artery disease. Acute coronary syndrome/unstable angina EKG showed diffuse T wave inversions. LDL 136. Hemoglobin A1c pending. Rest post cardiac catheterization 2017. Patient started on aspirin, Plavix, lisinopril, metoprolol and pravastatin, echocardiogram pending. Cardiology on board. Uncontrolled hypertension-on lisinopril and metoprolol, start Norvasc. Hydralazine intravenously as needed. Increase lisinopril to 20 mg daily. Acute renal failure, cardiorenal versus hypovolemia versus contrast nephropathy- ? No known history of chronic kidney disease, if ever, might have chronic kidney disease from hypertensive nephropathy. Recheck BMP tomorrow, will give some fluids today. Counseled patient on importance of smoking cessation as well as heart healthy diet and exercise post hospitalization. Patient verbalized understanding DVT prophylaxis: Ambulatory He is threatening to leave AMA, he says he is very frustrated and would like to go home.
--- NOTE | 2018-07-27 11:41 | ECG ---
Date Performed: 07/26/2018 Time Performed: 15:34:00 PTAGE: 62 years EKG: Sinus rhythm . nonspecific ST-T changes may represent anterolateral ischemia no change Compared to PREVIOUS TRACING PREVIOUS TRACIN07/26/2018 10.41 DOCTOR: Florin Andrews Interpretating Date/Time 07/27/2018 11:40:30
[2018-07-27] MEDS ORDERED: hydrALAZINE HCl Inj 20 MG/ML Vial IV.PUSH PRN (12:09)
[2018-07-27] MEDS: amLODIPine 10 MG Tablet PO SCH (12:50)
[2018-07-27] MEDS: Sod Chloride 0.9% Inj 1,000 ML IV.CONT SCH ×2 (13:15→23:51)
--- NOTE | 2018-07-27 15:14 | ECHRPT ---
Indication: chest pain CONCLUSIONS Normal left ventricular size. Moderate concentric left ventricular hypertrophy. The left ventricular systolic function is hyperdynamic with an estimated ejection fraction in the ra nge of 65- 70%. [id number] mitral valve regurgitation. The estimated pulmonary arterial pressure is 24 mmHg. BP: / HR: Rhythm: MEASUREMENTS (Male / Female) Normal Values Technical Quality: 2D ECHO LV Diastolic Diameter PLAX 3.9 cm 4.2 - 5.9 / 3.9 - 5.3 cm LV Systolic Diameter PLAX 3.1 cm IVS Diastolic Thickness 2.1 cm 0.6 - 1.0 / 0.6 - 0.9 cm LVPW Diastolic Thickness 1.6 cm 0.6 - 1.0 / 0.6 - 0.9 cm LV Relative Wall Thickness 0.9 RV Internal Dim ED PLAX 3.4 cm LVOT Diameter 2.3 cm Aortic Root Diameter 3.4 cm LV Ejection Fraction MOD BP 58.1 % >= 55 % LV Ejection Fraction MOD 4C 52.9 % LV Ejection Fraction 4C AL 54.5 % LV Ejection Fraction MOD 2C 66.1 % LV Ejection Fraction 2C AL 67.2 % M-MODE Aortic Root Diameter MM 3.8 cm LA Systolic Diameter MM 4.5 cm LA Ao Ratio MM 1.2 AV Cusp Separation MM 2.2 cm DOPPLER AV Peak Velocity 121.0 cm/s AV Peak Gradient 5.9 mmHg AV Mean Gradient 3.0 mmHg AV Velocity Time Integral 21.2 cm LVOT Peak Velocity 117.0 cm/s LVOT Peak Gradient 5.5 mmHg LVOT Velocity Time Integral 22.1 cm AV Area Cont Eq vti 4.3 cm AV Area Cont Eq pk 4.0 cm Mitral E Point Velocity 105.0 cm/s Mitral A Point Velocity 109.0 cm/s Mitral E to A Ratio 1.0 LV E' Lateral Velocity 6.3 cm/s Mitral E to LV E' Lateral Ratio 16.7 LV E' Septal Velocity 5.3 cm/s Mitral E to LV E' Septal Ratio 20.0 TR Peak Velocity 186.0 cm/s TR Peak Gradient 13.8 mmHg Right Atrial Pressure 10.0 mmHg Pulmonary Artery Systolic Pressu 23.8 mmHg Right Ventricular Systolic Press 23.8 mmHg PV Peak Velocity 136.0 cm/s PV Peak Gradient 7.4 mmHg FINDINGS LEFT VENTRICLE Normal left ventricular size. Moderate concentric left ventricular hypertrophy. The left ventricular systolic function is hyperdynamic with an estimated ejection fraction in the ra nge of 65- 70%. RIGHT VENTRICLE Normal right ventricular size and systolic function. LEFT ATRIUM The left atrial size is normal. RIGHT ATRIUM The right atrial size is normal. ATRIAL SEPTUM Normal atrial septal thickness without atrial level shunting by limited color doppler interrogation. AORTA The aortic root and proximal ascending aorta are normal in size on limited imaging. MITRAL VALVE [id number] mitral valve regurgitation. AORTIC VALVE Trileaflet aortic valve. No aortic valve stenosis or regurgitation. TRICUSPID VALVE The estimated pulmonary arterial pressure is 24 mmHg. PULMONARY VALVE No pulmonary valve regurgitation or stenosis. VESSELS The inferior vena cava is normal in size. PERICARDIUM No pericardial effusion. Ramirez Grigsby MD (Electronically Signed) Final Date:27 July 2018 15:13
--- NOTE | 2018-07-27 15:38 | P.PNCA ---
Subjective Interval history: Patient denies any CP, pressure, palpitations, dizziness, edema or SOB. Patient states he feels very good and is ready to go home. Medications and Allergies Allergies Allergy/AdvReac Type Severity Reaction Status Date / Time No Known Allergies Allergy Verified 07/26/18 10:44 Home Medications Medication Instructions Recorded Confirmed Type No Known Home Medications 07/26/18 07/26/18 History Active Medications: Active Medications Amlodipine Besylate (Norvasc) 10 mg PO DAILY [facility] Last Admin: 07/27/18 12:50 Dose: 10 mg Aspirin (Aspirin Chew) 81 mg PO DAILY [facility] Last Admin: 07/27/18 08:22 Dose: 81 mg Clopidogrel Bisulfate (Plavix) 75 mg PO DAILY [facility] Last Admin: 07/27/18 08:22 Dose: 75 mg Diphenhydramine HCl (Benadryl) 25 mg PO HS PRN PRN Reason: INSOMNIA Last Admin: 07/26/18 22:54 Dose: 25 mg Hydralazine HCl (Apresoline Inj) 10 mg IV.PUSH Q4H PRN PRN Reason: SBP>160, DBP>90 Sodium Chloride (Ns Inj) 1,000 mls @ 84 mls/hr IV.CONT .[id number] [facility] Last Admin: 07/27/18 13:15 Dose: 84 mls/hr Lisinopril (Prinivil) 10 mg PO DAILY [facility] Last Admin: 07/27/18 08:22 Dose: 10 mg Metoprolol Tartrate (Lopressor) 50 mg PO Q12H [facility] Last Admin: 07/27/18 15:11 Dose: 50 mg Morphine Sulfate (Morphine Inj) 2 mg IV.PUSH Q4H PRN PRN Reason: PAIN SCALE 8 TO 10 Pravastatin Sodium (Pravachol) 40 mg PO HS [facility] Last Admin: 07/26/18 21:02 Dose: 40 mg Sodium Chloride (Ns Flush) 2 ml IV.FLUSH BID [facility] Last Admin: 07/27/18 10:14 Dose: 2 ml Sodium Chloride (Ns Flush) 2 ml IV.FLUSH PRN PRN PRN Reason: FLUSH AFTER USING IV ACCESS Physical Exam Vital signs: Vital Signs 07/26/18 19:00 07/26/18 20:00 07/26/18 21:00 Temperature 98.5 F Pulse Rate 75 66 78 Respiratory Rate 20 Blood Pressure 147/81 H Pulse Oximetry 97 07/26/18 22:00 07/26/18 23:00 07/27/18 00:00 Temperature 98.4 F Pulse Rate 76 75 73 Respiratory Rate 20 Blood Pressure 174/80 H Pulse Oximetry 93 L 07/27/18 01:00 07/27/18 02:15 07/27/18 03:00 Temperature Pulse Rate 68 80 83 Respiratory Rate Blood Pressure Pulse Oximetry 07/27/18 04:00 07/27/18 05:00 07/27/18 06:00 Temperature 98.3 F Pulse Rate 80 64 67 Respiratory Rate 20 Blood Pressure 190/84 H Pulse Oximetry 91 L 07/27/18 07:00 07/27/18 07:22 07/27/18 08:00 Temperature 98.6 F Pulse Rate 66 72 60 Respiratory Rate 16 Blood Pressure 163/78 H Pulse Oximetry 93 L 93 L 07/27/18 09:00 07/27/18 10:00 07/27/18 11:00 Temperature Pulse Rate 78 64 74 Respiratory Rate Blood Pressure Pulse Oximetry 07/27/18 11:43 07/27/18 12:00 07/27/18 12:27 Temperature 97.9 F Pulse Rate 72 70 Respiratory Rate 16 Blood Pressure 181/72 H 163/83 H Pulse Oximetry 92 L 07/27/18 13:00 07/27/18 15:12 Temperature 98.3 F Pulse Rate 60 72 Respiratory Rate 16 Blood Pressure 182/82 H Pulse Oximetry 94 L Intake & Output 07/26/18 07/27/18 07/27/18 18:59 06:59 18:59 Intake Total 5 / 5 720 / 720 Output Total 1050 / 1050 800 / 800 Balance -1045 / -1045 -80 / -80 Weight 104.326 kg 104.4 kg Intake: IV 5 / 5 Heparin/NS PF Inj 1,000 ML @ 0 5 / 5 mls/hr .ROUTE .[facility] Rx#: [id number] Oral 720 / 720 Output: Urine 1050 / 1050 800 / 800 Other: Date of Last Bowel Movement 07/26/18 - Constitutional no acute distress - Routine HEENT Exam Head: Present: normocephalic Eye: Present: PERRL ENT: Present: mucous membranes moist - Routine Neck Exam Present: full ROM - Routine Respiratory Exam Present: CTA bilaterally - Routine Cardiovascular Exam Present: S1, S2. Absent: murmur, gallop, rubs - Routine Abdominal Exam Present: normoactive bowel sounds - Routine Extremities Exam Present: full ROM, pulses intact, normal capillary refill. Absent: cyanosis, clubbing, edema Comments: Right groin site D&I without signs of bleeding, hematoma or infection - Routine Skin Exam Present: intact - Routine Neurological Exam Present: oriented X3 - Detailed Neurological Exam: Coma Scale Eye Opening: Spontaneous Verbal Response: Oriented Motor Response: Obey commands Prabha Coma Scale Total: 15 - Routine Psychiatric Exam Present: normal affect Results 07/27/18 06:54 07/27/18 06:54 Cardiac Enzymes 07/26/18 Range/Units 10:52 AST 13 L (15-37) U/L Troponin I Less than 0.02 L (0.02-0.05) ng/mL Coagulation 07/26/18 07/27/18 Range/Units 10:52 06:54 PT 10.0 10.4 (9.8-11.6) sec APTT 29.2 (23.4-31.7) sec Lipids 07/27/18 Range/Units 06:54 Triglycerides 190 H (42-150) mg/dL Cholesterol 207 H (120-200) mg/dL HDL Cholesterol 32.6 L (40.0-60.0) mg/dL Cholesterol/HDL Ratio 6.34 Ratio CBC 07/26/18 07/27/18 Range/Units 10:52 06:54 WBC 6.8 9.6 (4.0-11.0) th/mm3 RBC 5.03 4.87 (4.50-5.90) mil/mm3 Hgb 14.1 13.5 (13.0-17.0) gm/dL Hct 41.4 40.5 (39.0-51.0) % Plt Count 249 279 (150-450) th/mm3 Neut # (Auto) 4.0 (1.8-7.7) th/mm3 Lymph # (Auto) 1.8 (1.0-4.8) th/mm3 [place] # (Auto) 0.7 (0.0-0.9) th/mm3 Eos # (Auto) 0.3 (0.0-0.4) th/mm3 Baso # (Auto) 0.1 (0.0-0.2) th/mm3 Comprehensive Metabolic Panel 07/26/18 07/27/18 Range/Units 10:52 06:54 Sodium 141 139 (136-145) meq/L Potassium 3.8 3.5 (3.5-5.1) meq/L Chloride 105 103 (98-107) meq/L Carbon Dioxide 29.6 29.0 (21.0-32.0) meq/L BUN 22 H 21 H (7-18) mg/dL Creatinine 1.36 H 1.31 H (0.60-1.30) mg/dL Calcium 9.0 8.1 L D (8.5-10.1) mg/dL AST 13 L (15-37) U/L ALT 33 (12-78) U/L Alkaline Phosphatase 120 H (45-117) U/L Total Protein 7.4 (6.4-8.2) g/dL Albumin 3.6 (3.4-5.0) g/dL Intake and Output 07/27/18 07/27/18 07/27/18 06:59 14:59 22:59 Intake Total 720 / 720 Output Total 800 / 800 Balance -80 / -80 Intake: Oral 720 / 720 Output: Urine 800 / 800 Other: Date of Last Bowel Movement 07/26/18 07/26/18 Weight 104.4 kg - Imaging and Cardiology Imaging: Impressions Chest X-Ray 07/26/18 10:40 CONCLUSION: Negative for an acute process. Assessment and Plan - Assessment (1) S/P cardiac cath Code(s): Z98.890 - Other specified postprocedural states Status: Acute (2) Angina pectoris, unstable Code(s): I20.0 - Unstable angina Status: Acute (3) Abnormal EKG Code(s): R94.31 - Abnormal electrocardiogram [ECG] [EKG] Status: Acute - Plan Patient is stable from a cardiac standpoint. We will continue full anticoagulation with ASA and Plavix. We will continue current cardiac treatment plan. Continue hydration. Patient remains hypertensive, we will titrate his antihypertensive therapy. We will continue to monitor the patient during his hospitalization. The patient was seen and evaluated by Dr. Foster who participated in care, management and decision making. - Attending Attestation Patient seen and examined. I reviewed and agree with the evaluation and plan as presented. Continue post PCI tx. Titrate antihypertensive management.
[2018-07-27] MEDS ORDERED: Lisinopril 10 MG Tablet PO ONE (16:16)
[2018-07-27] MEDS: Metoprolol Tartrate 100 MG Tablet PO SCH (21:23)
[2018-07-28 00:14] VITALS: RESP 18; TEMP 98.5
[2018-07-28] MEDS: Sod Chloride 0.9% Inj 1,000 ML IV.CONT SCH (01:35)
[2018-07-28 07:29] VITALS: BP 159/78; O2SAT 93
[2018-07-28 07:37] LABS: Hematocrit 40.9 % (39.0-51.0); Hemoglobin 13.5 gm/dL (13.0-17.0); Mean Corpuscular Hemoglobin 27.4 pg (27.0-34.0); Mean Corpuscular Volume 83.2 fL (80.0-100.0); Mean Platelet Volume 8.3 fL (7.0-11.0); Platelet Count 271 th/mm3 (150-450); Red Blood Count 4.91 mil/mm3 (4.50-5.90); Red Cell Distribution Width 14.8 % (11.6-17.2); White Blood Count 9.3 th/mm3 (4.0-11.0)
[2018-07-28 08:00] LABS: Calcium 8.1 mg/dL (8.5-10.1); Carbon Dioxide 28.8 meq/L (21.0-32.0); Potassium 3.9 meq/L (3.5-5.1)
--- NOTE | 2018-07-28 08:38 | P.DS ---
DS: Providers Date of admission: 07/26/18 12:49 Primary care physician: No Primary Care Physician Consults: 07/26/18 11:45 Consult to Cardiology Routine Consulting Provider: Zuleyka Foster Does the patient have a Driveway Attendant who follows them?: No Preferred Custom Miller:: Zuleyka Foster Reason for Consultation: Unstable angina/Stable Angina Notified:: Service Spoke with:: DAKSHA Date Notified:: 07/26/18 Time Notified:: 12:19 Ordering Provider: GIOVANY DS: Diagnosis Discharge Diagnosis (1) S/P cardiac cath: Status: Acute (2) Angina pectoris, unstable: Status: Acute (3) Abnormal EKG: Status: Acute (4) ACS (acute coronary syndrome): Status: Acute DS: Summary Patient is a pleasant 62-year-old male with no known past medical history presents to emergency department for complaints of epigastric and chest pain. EKG showedincomplete right bundle branch block, small anteroseptal Q waves and diffuse ST-T wave changes concerning for ischemia for which she was started promptly on a heparin drip with plan for catheterization. Chest x-ray unremarkable, Troponin 0 0.02. Patient has been smoking for the last 40 years and has a family history significant for coronary artery disease. Patient was diagnosed with unstable angina/acute coronary syndrome, cardiology was consulted, status post cardiac catheterization 07/26/2018, showed coronary artery disease with severe stenosis of the distal left circumflex artery, status post successful angioplasty and stenting of the distal left circumflex. Preserved ejection fraction. LDL 136. Hemoglobin A1c still pending on discharge. Patient also have severe hypertension. Patient started on aspirin, Plavix, lisinopril, metoprolol and pravastatin, Norvasc was also started for blood pressure control. Echocardiogram showed normal left ventricular size, ejection fraction 65-70%. Patient also had acute renal failure possibly from hypovolemia versus contrast nephropathy. No known history of chronic kidney disease, but possibly may have from hypertensive nephropathy and taking NSAIDs. Creatinine improved with volume resuscitation. Counseled patient on importance of smoking cessation as well as heart healthy diet and exercise post hospitalization. Patient verbalized understanding Time spent discussing smoking cessation with patient: 3 to 10 minutes Time Spent with Patient Total time spent providing and/or coordinating discharge services: Greater than 30 minutes Status at Discharge Functional status at discharge: independent ambulation Exam Narrative Exam Narrative: S> no chest pain, not short of breath, denies any palpitations. Blood pressure in the 160s. On room air. Ambulatory. O> General: No acute distress, conversational HEENT: EOMI, PERRLA Cardio vascular: S1/S2. No murmurs rubs or gallops appreciated. Respiratory: Clear to auscultation anteriorly posteriorly. Gastrointestinal: Soft, nontender, nondistended, no guarding or rebound appreciated. Positive bowel sounds Extremity: No lower extremity edema Alert awake and oriented x3, no focal deficits. Results Labs on day of discharge: Labs from last 24 hours 07/28/18 07/28/18 07/27/18 05:58 05:58 06:54 WBC 9.3 RBC 4.91 Hgb 13.5 Hct 40.9 MCV 83.2 MCH 27.4 MCHC 33.0 RDW 14.8 Plt Count 271 MPV 8.3 Sodium 140 139 Potassium 3.9 3.5 Chloride 106 103 Carbon Dioxide 28.8 29.0 Anion Gap 5 7 BUN 21 H 21 H Creatinine 1.19 1.31 H Estimated GFR 62 L 56 L Random Glucose 95 118 H Calcium 8.1 L 8.1 L D Magnesium 2.2 Triglycerides 190 H Cholesterol 207 H LDL Cholesterol, Calc 136 H HDL Cholesterol 32.6 L Cholesterol/HDL Ratio 6.34 Impressions ITS Impressions Chest X-Ray 07/26/18 10:40 CONCLUSION: Negative for an acute process. Discharge Plan Discharge Disposition Patient Disposition: Discharge Home Discharge Condition Condition: Stable Discharge Order Discharge Orders: Discharge Order (Routine); Ordered 07/28/18 Ordered By: Lindsey Alcantar Discharge Details Anticipated Discharge Date: 07/28/18 Physicians Team Primary Care Provider: Primary Care Vianca Serra Attending Provider: Lindsey Alcantar Other Providers: Zuleyka Foster Rxs /Orders / Referrals /Forms Prescriptions: New metoprolol tartrate 100 mg Tablet 100 mg PO BID Qty: 60 RF: 0 lisinopril 20 mg Tablet 20 mg PO DAILY Qty: 30 RF: 0 clopidogrel [Plavix] 75 mg Tablet 75 mg PO DAILY Qty: 30 RF: 0 pravastatin 10 mg Tablet 40 mg PO HS Qty: 30 RF: 0 amlodipine [Norvasc] 10 mg Tablet 10 mg PO DAILY Qty: 30 RF: 0 aspirin 81 mg Tablet,Chewable 81 mg PO DAILY Qty: 30 RF: 0 No Action No Known Home Medications RF: 0 Referrals: NONE [Other] - See Instructions Primary Care Physici,No [Primary Care Provider] - See Instructions (Refer to Renita for f/u) Discharge Instructions Patient Printed Instructions: Chest Pain (ED) Status ED Status: Left Department
[2018-07-28] MEDS: Metoprolol Tartrate 100 MG Tablet PO SCH (08:41)
[2018-07-28] MEDS: amLODIPine 10 MG Tablet PO SCH (08:42)
[2018-07-28] MEDS ORDERED: Lisinopril 20 MG Tablet PO SCH (09:00)
[2018-07-28 10:15] VITALS: PULSE 64
== END 2018-07-28 10:21 | disposition home or self-care (01) ==
LOC: NEPE 10:23 → NEDA 12:49 → HCIS 15:45
PROVIDERS: ADMIT Hospitalist; ATTEND Hospitalist
DX: F17.210 Nicotine dependence, cigarettes, uncomplicated; N17.9 Acute kidney failure, unspecified; Z82.49 Family history of ischemic heart disease and other diseases of the circulatory system; I10 Essential (primary) hypertension; I24.9 Acute ischemic heart disease, unspecified; I45.10 Unspecified right bundle-branch block; I25.110 Atherosclerotic heart disease of native coronary artery with unstable angina pectoris; R00.2 Palpitations